=== PATIENT | female | born 1965 | race Caucasian/White ===

== ENCOUNTER 2017-10-12 07:51 | Outpatient (CLI) | payer BC | END 2017-10-12 07:52 | disposition home or self-care (01) | LOC: BICMAMMO 07:51 | PROVIDERS: ATTEND Obstetrics & Gynecology | DX: Z12.31 Encounter for screening mammogram for malignant neoplasm of breast (principal) | CPT/HCPCS: 77067; G0202 ==

== ENCOUNTER 2018-07-13 10:27 | Outpatient (CLI) | payer BC ==
--- NOTE | 2018-07-13 13:07 | ULT ---
GALLBLADDER ULTRASOUND: HISTORY: Abdominal pain. Nausea and vomiting. COMPARISON: None. TECHNIQUE: Utilizing a multihertz transducer, sonographic imaging of the right upper quadrant is performed in th e longitudinal and transverse plane. FINDINGS: The head of the pancreas has a normal echotexture. The remainder of the pancreas is obscured by miriam l gas. Increased echogenicity of the liver may be due to hepatic steatosis or hepatocellular disease. Subse quent evaluation for hepatic masses and intrahepatic biliary dilatation limited. The right hepatic l obe measures 14.3 cm. Main portal vein is patent. Appropriate directional flow. Within the lumen of the gallbladder, there are multiple echogenic foci which may represent inherent s hadowing stones. Gallbladder is prominent, measuring 8.9 cm. There is no evidence of pericholecysti c fluid. Gallbladder wall is not thickened. Negative Barragan's sign. Common bile duct diameter is 0.5 cm. Heterogeneous echotexture of the right kidney. No hydronephrosis. The right kidney measures 8.9 x 5 .0 x 4.4 cm. IMPRESSION: Distended gallbladder with sonographic evidence of cholelithiasis, without evidence of cholecystitis. If there is concern, consider HIDA scan. POS: [facility]
== END 2018-07-13 10:28 | disposition home or self-care (01) ==
LOC: ULT 10:27
PROVIDERS: ATTEND Family Medicine
DX: R10.9 Unspecified abdominal pain (principal); K80.20 Calculus of gallbladder without cholecystitis without obstruction; K82.8 Other specified diseases of gallbladder
CPT/HCPCS: 76705

== ENCOUNTER 2018-07-14 12:12 | Day surgery (SDC) | payer BC ==
[2018-07-14] MEDS ORDERED: Ketorolac Tromethamine 30 MG/ML VIAL ONE (12:34)
[2018-07-14] MEDS ORDERED: Levofloxacin 500 mg/D5W 100 ml Premix Bag ONE (12:34)
--- NOTE | 2018-07-14 13:24 | HP ---
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 She has attributed this to just GI upset, irritable bowel. In the last week, she has had severe pain, intolerable. She saw Dr. Santos yesterday and an abdominal ultrasound revealed normal bile duct caliber and gallstones and negative s onographic Barragan. Her pain was intolerable. A referral was made yesterday from Dr. Santos's office to my office by the transfer center. The patient did not hear anything. She finally presented to [facility] emergency room and labs are being drawn. ALLERGIES: None. TOBACCO: None. ALCOHOL: Rarely. MEDICATIONS: P.r.n. tramadol, tizanidine, venlafaxine, metformin t.i.d. (pioglitazone/metformin), bu talbital/acetaminophen/caffeine/codeine 2 caps p.o. b.i.d. p.r.n. migraine, Wellbutrin 100 mg b.i.d., Xanax p.r.n. 3 mg at bedtime. PAST SURGICAL HISTORY: Vaginal hysterectomy without oophorectomy; left shoulder surgery for what was thought was rotator cuff, it turned out to be a frozen shoulder. Pain management resulted in inject ion causing weakness, left arm and left leg. Left leg has recovered. She has residual chronic weakn ess in left arm and hand. Colonoscopy in the past. PAST MEDICAL HISTORY: Type 2 diabetes mellitus; history of gestational diabetes, now on metformin; m igraines. REVIEW OF SYSTEMS: Ten-point noncontributory. PHYSICAL EXAMINATION: VITAL SIGNS: Heart rate 68, respiratory rate 18, blood pressure 120/68. HEAD, EARS, EYES, NOSE, AND THROAT: Unremarkable. Sclerae nonicteric. SKIN: Nonjaundiced. LUNGS: Clear to auscultation. CARDIAC: Regular rate and rhythm without murmur, rub, or gallop. ABDOMEN: Tenderness in right upper quadrant, positive Barragan sign. EXTREMITIES: Unremarkable. No ankle edema or palpable pulses. LABORATORY DATA: Laboratories are pending. ASSESSMENT AND PLAN: Cholecystitis, cholelithiasis. Recommend laparoscopic video cholecystectomy. Risk of infection, bleeding, visceral and biliary injury explained, possibly open cholecystectomy exp lained and questions answered. Plan laparoscopic cholecystectomy today as an outpatient. She will r eceimaritza Levaquin, Toradol, Ofirmev, scopolamine patch. We will plan discharge home with Ultram. Thompson ow up in my office in 1-2 weeks.
[2018-07-14] MEDS ORDERED: Scopolamine 1.5 mg/72 hour Patch ONE (13:41)
[2018-07-14] MEDS ORDERED: Succinylcholine Chloride 20 MG/ML 10 ml SYRINGE FS ONE (15:10)
[2018-07-14] MEDS ORDERED: Lidocaine 1% PF 5 ML VIAL ONE (15:10)
[2018-07-14] MEDS ORDERED: Glycopyrrolate 0.2 MG/ML 5 ML SYRINGE ONE (15:10)
[2018-07-14] MEDS ORDERED: PROPOFOL 200 MG/20 ML VIAL ONE (15:10)
[2018-07-14] MEDS ORDERED: Bupivacaine HCl 0.5%/Epinephrine 1:200,000/PF 30 ml Vial ONE (15:26)
[2018-07-14] MEDS ORDERED: Midazolam HCl 2 mg/2 ml Vial ONE ×2 (15:44→17:03)
[2018-07-14] MEDS ORDERED: Fentanyl 100 MCG/2 ML VIAL ONE (15:44)
[2018-07-14 16:41] LABS: #Basophils 0.1 thou/uL (0.0-0.2); #Eosinphils 0.1 thou/uL (0.0-0.7); #Lymphocytes 2.4 thou/uL (1.20-3.40); #Monocytes 0.6 thou/uL (0.11-0.59); #Neutrophils 2.4 thou/uL (1.40-6.50); %Basophils 1.4 % (0.0-1.0); %Eosinophils 1.6 % (0.0-10.0); %Lymphocytes 43.8 % (21.0-51.0); %Monocytes 10.2 % (0.0-10.0); %Neutrophils 43.2 % (42.0-75.0); Hemoglobin 12.8 g/dL (12.0-16.0); Mean Corpuscular HGB CONC 31.6 g/dL (32.0-36.0); Mean Corpuscular Hemoglobin 28.6 pg (27.0-31.0); Mean Corpuscular Volume 90.5 fL (78.0-98.0); Mean Platelet Volume 7.7 fL (7.4-10.4); Platelet Count 347 thou/uL (130-400); RBC Distribution Width 12.9 % (11.5-14.5); Red Blood Cell (RBC) Count 4.48 mill/uL (4.20-5.40); White Blood Cell (WBC) Count 5.4 thou/uL (4.8-10.8)
[2018-07-14] MEDS ORDERED: Ondansetron HCl/PF 4 MG/2 ML Vial ONE (16:49)
[2018-07-14 16:51] LABS: ALT (SGPT) 19 U/L (8-55); AST (SGOT) 21 U/L (5-34); Albumin 4.6 g/dL (3.5-5.0); Alkaline Phosphatase 94 U/L (40-150); Anion Gap 14 mmol/L (10-20); BUN (Urea Nitrogen) 23 mg/dL (9.8-20.1); Bilirubin, Total 0.4 mg/dL (0.2-1.2); Calc. Creatinine Clearance 0 mL/min (70-130); Calcium 10.3 mg/dL (7.8-10.44); Carbon Dioxide 31 mmol/L (22-29); Chloride 100 mmol/L (98-107); Estimated GFR-MDRD 70; Globulin 2.9 g/dL (2.4-3.5); Glucose 127 mg/dL (70-105); Potassium 4.6 mmol/L (3.5-5.1); Protein, Total 7.5 g/dL (6.0-8.3); Sodium 140 mmol/L (136-145)
[2018-07-14] MEDS ORDERED: HYDROmorphone 2 MG/ML VIAL ONE (16:51)
[2018-07-14] MEDS ORDERED: Promethazine HCl 25 MG/ML VIAL ONE (17:47)
[2018-07-14] MEDS ORDERED: Morphine 4 MG/ML VIAL ONE (17:52)
[2018-07-14] MEDS ORDERED: HYDROcodone/Acetaminophen 5/325 mg Tablet ONE (18:29)
--- NOTE | 2018-07-14 22:44 | OP ---
PREOPERATIVE DIAGNOSES: Acute chronic cholecystitis and cholelithiasis. POSTOPERATIVE DIAGNOSES: Acute chronic cholecystitis and cholelithiasis. PROCEDURE: Laparoscopic video cholecystectomy. SURGEON: Dmitri Jones M.D. ANESTHESIA: General. Local 0.5% Marcaine with epinephrine 30 mL. PROCEDURE IN DETAIL: The patient was taken to the operating room where under general anesthesia in s upine position, abdomen was prepared with ChloraPrep, draped in routine fashion. Local anesthetic in filtrated into the skin and subcutaneous tissue about all port sites. Infraumbilical incision made a nd pneumoperitoneum to 15 mmHg obtained with a Veress needle, replacing it with a 5 port, video lapar oscope inserted. Right subxiphoid incision made and 11 port placed. Right subcostal incision made, mid clavicular anterior axillary lines and 5 ports placed. Gallbladder was distended. Liver appeare d to be normal. Fundus of gallbladder grasped at cephalad. Infundibulum grasped and reflected later ally. Cystic artery and duct dissected free. Critical view obtained. Cystic artery and duct doubly clipped proximally, divided, and gallbladder dissected free from the bed obtaining good hemostasis p rior to division of final peritoneal attachments. Gallbladder and contents removed and submitted to Pathology. Good hemostasis ensured with the cautery. Irrigant and pneumoperitoneum evacuated. All instruments removed and all skin incisions were approximated with interrupted subdermal 4-0 Monocryl and DermaGlue applied.
== END 2018-07-14 19:05 | disposition home or self-care (01) ==
LOC: ERS 12:12 → SDC 12:12 → EDSTATUS 12:33 → SDC 19:05
PROVIDERS: ATTEND Specialist
PROC: 0FT44ZZ Resection of Gallbladder, Percutaneous Endoscopic Approach (ICD-10-PCS; principal; 2018-07-14)
DX: K80.12 Calculus of gallbladder with acute and chronic cholecystitis without obstruction (principal)
CPT/HCPCS: 36416; 80053; 85025; 88304; 93005; 96374; 96375; J0131; J0670; J1170; J1885; J1956; J2001; J2250; J2270; J2405; J2550; J2704; J3010

== ENCOUNTER 2018-07-16 18:25 | Emergency (ER) | payer BC ==
[~2018-07-16 18:25] MED LIST: ISOVUE-370 76%-LOCM 1 ML ONE
[2018-07-16] MEDS ORDERED: Fentanyl 100 MCG/2 ML VIAL ONE (19:08)
[2018-07-16 19:19] LABS: #Basophils 0.1 thou/uL (0.0-0.2); #Eosinphils 0.1 thou/uL (0.0-0.7); #Monocytes 1.1 thou/uL (0.11-0.59); #Neutrophils 11.4 thou/uL (1.40-6.50); %Basophils 0.4 % (0.0-1.0); %Eosinophils 0.5 % (0.0-10.0); %Lymphocytes 13.7 % (21.0-51.0); %Monocytes 7.7 % (0.0-10.0); %Neutrophils 77.7 % (42.0-75.0); Mean Corpuscular HGB CONC 32.1 g/dL (32.0-36.0); Mean Corpuscular Hemoglobin 29.1 pg (27.0-31.0); Mean Corpuscular Volume 90.4 fL (78.0-98.0); Mean Platelet Volume 7.5 fL (7.4-10.4); Platelet Count 298 thou/uL (130-400); RBC Distribution Width 12.9 % (11.5-14.5); Red Blood Cell (RBC) Count 3.77 mill/uL (4.20-5.40); White Blood Cell (WBC) Count 14.6 thou/uL (4.8-10.8)
[2018-07-16 19:34] LABS: ALT (SGPT) 68 U/L (8-55); AST (SGOT) 60 U/L (5-34); Albumin 3.6 g/dL (3.5-5.0); Alkaline Phosphatase 78 U/L (40-150); Anion Gap 14 mmol/L (10-20); BUN (Urea Nitrogen) 16 mg/dL (9.8-20.1); Bilirubin, Total 0.2 mg/dL (0.2-1.2); CK (CPK) 168 U/L (29-168); Calc. Creatinine Clearance 0 mL/min (70-130); Calcium 9.5 mg/dL (7.8-10.44); Carbon Dioxide 24 mmol/L (22-29); Chloride 103 mmol/L (98-107); Estimated GFR-MDRD 73; Globulin 3.2 g/dL (2.4-3.5); Glucose 184 mg/dL (70-105); Lipase 22 U/L (8-78); Potassium 4.4 mmol/L (3.5-5.1); Protein, Total 6.8 g/dL (6.0-8.3); Sodium 137 mmol/L (136-145)
[2018-07-16 19:37] LABS: CKMB 1.3 ng/mL (0-6.6); Troponin I Less than 0.010 ng/mL (< 0.028)
--- NOTE | 2018-07-16 19:41 | RAD ---
PORTABLE CHEST: HISTORY: The patient had a cholecystectomy on Arcenio and has had abdomen pain and now chest pain. FINDINGS: There are bibasilar atelectatic lung changes seen. The film is of suboptimal inspiration. Heart siz e is within normal limits, considering the technique. An enchondroma of the proximal left humeral sh aft is incidentally noted. IMPRESSION: Bibasilar atelectasis. POS: [facility]
[2018-07-16] MEDS ORDERED: Morphine 4 MG/ML VIAL ONE (19:46)
--- NOTE | 2018-07-16 20:35 | CT ---
CT ANGIO CHEST PERFORMED WITH INTRAVENOUS CONTRAST ENHANCEMENT AND 3D RECONSTRUCTIONS: HISTORY: Cholecystectomy on Tuesday. Reports chest pain and abdomen pain. Elevated D-dimer. FINDINGS: There are bibasilar atelectatic lung changes present with small bilateral pleural effusions. No pulm onary nodules. No significant mediastinal or hilar lymphadenopathy. The thoracic aorta is normal in caliber. There is good pulmonary artery opacification. There is no CT evidence for pulmonary embolus. The visualized liver parenchyma is unremarkable. There is some free air seen in the hemidiaphragm, w hich is compatible with the recent cholecystectomy. The gallbladder fossa region is only partially v isualized on this study. IMPRESSION: Bibasilar atelectasis. No CT evidence for pulmonary embolus. POS: [facility]
[2018-07-16] MEDS ORDERED: Lorazepam 2 MG/ML VIAL ONE (20:39)
--- NOTE | 2018-07-16 20:49 | CT ---
CT ABDOMEN AND PELVIS WITH IV CONTRAST: 07/16/2018 HISTORY: Abdominal pain since cholecystectomy on Tuesday. COMPARISON: None available. FINDINGS: There are tiny bilateral pleural effusions with parenchymal opacities at each lung base, probably rel ated to atelectasis. Post cholecystectomy changes noted with surgical clips in the gallbladder fossa. There is a minimal amount of fluid and stranding seen within the gallbladder fossa, likely related to recent post surgic al changes. No fluid collection is seen to suggest an abscess. There is free intraperitoneal gas se en within the abdomen, likely related to post cholecystectomy changes. There is gas seen in the subcutaneous soft tissues, right upper quadrant, anteriorly, likely related to a port site. The liver, spleen, pancreas, bilateral adrenal glands, kidneys, and urinary bladder demonstrate a nor mal CT appearance. The common duct is mildly dilated, measuring 8 mm, which may be related to post cholecystectomy sullivan es. The small bowel is normal in caliber. There is a small to moderate amount of retained fecal material seen throughout the colon. Vascular calcification is seen in the abdominal aorta and involving the iliac arteries. Mild degenerative changes are seen in the spine. IMPRESSION: 1. Small bilateral pleural effusions and associated parenchymal consolidation in each lung base, pro bably related to passive atelectasis, although developing pneumonia cannot be entirely excluded. 2. Post surgical changes related to cholecystectomy with a small amount of fluid and inflammatory ch elkin in the gallbladder fossa. No significant free fluid is seen in the abdomen or pelvis, and there is no fluid collection seen to suggest an abscess. 3. Free intraperitoneal gas within the abdomen and pelvis and mild stranding in the upper anterior a bdomen, which is likely related to post surgical changes, but clinical correlation is recommended. 4. Moderate amount of retained fecal material seen throughout the colon, suggesting constipation. 5. No CT evidence of appendicitis. 6. Findings discussed with Dr. Cannon on 07/16/18 at 2027 hours. POS: [facility]
== END 2018-07-16 21:38 | disposition home or self-care (01) ==
LOC: ERS 18:25
DX: G89.18 Other acute postprocedural pain (principal); R07.9 Chest pain, unspecified; R10.13 Epigastric pain; E11.9 Type 2 diabetes mellitus without complications; G43.909 Migraine, unspecified, not intractable, without status migrainosus; F41.9 Anxiety disorder, unspecified; F32.9 Major depressive disorder, single episode, unspecified; Z79.84 Long term (current) use of oral hypoglycemic drugs; Z79.899 Other long term (current) drug therapy
CPT/HCPCS: 36415; 71045; 71275; 74177; 80053; 82550; 82553; 83690; 84484; 85025; 85379; 93005; 96361; 96374; 96375; J2060; J2270; J3010

== ENCOUNTER 2018-10-15 20:52 | Emergency (ER) | payer BC ==
[2018-10-15 21:38] LABS: #Basophils 0.1 thou/uL (0.0-0.2); #Eosinphils 0.1 thou/uL (0.0-0.7); #Lymphocytes 2.7 thou/uL (1.20-3.40); #Monocytes 0.6 thou/uL (0.11-0.59); #Neutrophils 2.9 thou/uL (1.40-6.50); %Basophils 1.7 % (0.0-1.0); %Eosinophils 1.7 % (0.0-10.0); %Lymphocytes 42.2 % (21.0-51.0); %Monocytes 8.8 % (0.0-10.0); %Neutrophils 45.6 % (42.0-75.0); Hemoglobin 11.3 g/dL (12.0-16.0); Mean Corpuscular HGB CONC 32.5 g/dL (32.0-36.0); Mean Corpuscular Hemoglobin 28.7 pg (27.0-31.0); Mean Corpuscular Volume 88.3 fL (78.0-98.0); Mean Platelet Volume 7.3 fL (7.4-10.4); Platelet Count 333 thou/uL (130-400); Red Blood Cell (RBC) Count 3.94 mill/uL (4.20-5.40); White Blood Cell (WBC) Count 6.4 thou/uL (4.8-10.8)
--- NOTE | 2018-10-15 21:44 | RAD ---
PORTABLE CHEST: HISTORY: Midline chest pain. FINDINGS: Heart size and mediastinum are within normal limits. Lungs are clear of any infiltrates. No signs o f failure. A chondroid lesion of the left humeral neck region is probably related to an enchondroma, stable as compared to a 07/16/2018 exam. IMPRESSION: No active intrathoracic disease. POS: [facility]
[2018-10-15 21:55] LABS: ALT (SGPT) 41 U/L (8-55); AST (SGOT) 31 U/L (5-34); Albumin 4.5 g/dL (3.5-5.0); Alkaline Phosphatase 116 U/L (40-150); Anion Gap 14 mmol/L (10-20); BUN (Urea Nitrogen) 13 mg/dL (9.8-20.1); Bilirubin, Total 0.3 mg/dL (0.2-1.2); Calc. Creatinine Clearance 0 mL/min (70-130); Calcium 9.8 mg/dL (7.8-10.44); Carbon Dioxide 30 mmol/L (22-29); Chloride 103 mmol/L (98-107); Estimated GFR-MDRD 73; Globulin 2.9 g/dL (2.4-3.5); Glucose 170 mg/dL (70-105); Potassium 3.6 mmol/L (3.5-5.1); Protein, Total 7.4 g/dL (6.0-8.3); Sodium 143 mmol/L (136-145)
[2018-10-15] MEDS ORDERED: Ketorolac Tromethamine 30 MG/ML VIAL ONE (22:00)
[2018-10-15] MEDS ORDERED: Multivitamins, Adult 10 ML, Thiamine HCl 100 MG, Folic Acid 1 MG in Dextrose 5 %-0.45 %... IV SCH (23:00)
[2018-10-15] MEDS ORDERED: Fioricet 325/50/40 mg Tablet PO SCH (23:15)
[2018-10-16] MEDS ORDERED: Multivitamins, Adult 10 ML, Thiamine HCl 100 MG, Folic Acid 1 MG in Dextrose 5 %-0.45 %... IV SCH (09:00)
--- NOTE | 2018-10-20 15:11 | EKG ---
Test Reason : Blood Pressure : / mmHG Vent. Rate : 079 BPM Atrial Rate : 079 BPM P-R Int : 150 ms QRS Dur : 082 ms QT Int : 370 ms P-R-T Axes : 074 052 072 degrees QTc Int : 424 ms Normal sinus rhythm Possible Left atrial enlargement Borderline ECG Confirmed by BRANDEE DONNELLY D.O. ([id number]), image editor EDWARD PEREZ ([id number]) on 10/20/2018 3:11:14 PM Referred By: Confirmed By:BRANDEE DONNELLY D.O.
== END 2018-10-15 23:11 | disposition home or self-care (01) ==
LOC: ERS 20:52
DX: R07.89 Other chest pain (principal); E11.9 Type 2 diabetes mellitus without complications; F32.9 Major depressive disorder, single episode, unspecified; Z79.84 Long term (current) use of oral hypoglycemic drugs; Z79.899 Other long term (current) drug therapy
CPT/HCPCS: 71045; 80053; 84484; 85025; 93005; 96374; J1885; J3411; J7042

== ENCOUNTER 2019-06-11 12:11 | Outpatient (CLI) | payer BC ==
--- NOTE | 2019-06-11 12:42 | RAD ---
Right foot 3 views: 06/11/2019 COMPARISON: None HISTORY: Right foot pain, trauma, swelling and bruising FINDINGS: There is a transverse fracture at the base of the fifth metatarsal with adjacent soft tissu e swelling. There is enthesophyte formation at the origin of the plantar aponeurosis. There is degenerative change at the first metatarsal-phalangeal joint. IMPRESSION: Fracture at the base of the fifth metatarsal. Orthopedic consultation advised.
== END 2019-06-11 12:12 | disposition home or self-care (01) ==
LOC: BICRAD 12:11
PROVIDERS: ATTEND Family Medicine
DX: M79.671 Pain in right foot (principal); S92.351A Displaced fracture of fifth metatarsal bone, right foot, initial encounter for closed fracture

== ENCOUNTER 2024-11-08 12:41 | Outpatient (CLI) | payer BC, OTHER | END 2024-11-08 12:42 | disposition home or self-care (01) | LOC: SCSRAD 12:41 | PROVIDERS: ATTEND Family Medicine | DX: M54.9 Dorsalgia, unspecified (principal); M25.572 Pain in left ankle and joints of left foot; W19.XXXA Unspecified fall, initial encounter | CPT/HCPCS: 72100; 72220 ==